=== PATIENT | female | born 1960 | race Caucasian/White ===

== ENCOUNTER 2017-12-01 14:01 | Emergency (ER) | payer BC ==
[~2017-12-01] VITALS: Ht 160 cm; Wt 61.2 kg
--- NOTE | ~2017-12-01 | EKG ---
[place] [address] [facility] [place] [address] ELECTROCARDIOGRAM REPORT Name: ALFREDO BOWEN Room #: [facility] Marcelo#: [id number] Admission: 12/01/17 Attend Phys: Discharge: 12/01/17 Date of : 60 Report #: [id number] THIS REPORT FOR: //name// [facility] ED Test Date: 2017-12-01 Test Time: 14:18:54 Pat Name: ALFREDO BOWEN Department: Room: Gender: F [employer] T[employer]: FROYLAN : 1960 Requested By: Rui Bustamante Order Number: [id number] MD: Gil Rooney Measurements Intervals [place] Rate: 103 P: 60 MS: 146 QRS: 57 QRSD: 90 T: 32 QT: 329 QTc: 431 Interpretive Statements Sinus tachycardia Multiform ventricular premature complexes Nonspecific repol abnormality, diffuse leads No previous ECG available for comparison Electronically Signed On 12-01-2017 23:04:41 [employer] SERVIC[employer] by Gil Rooney [email or web address] <ELECTRONICALLY SIGNED> By: Gil Rooney MD 12/01/17 [id number] 1418 MD CANDI Mccain
[2017-12-01 15:35] LABS: HEMATOCRIT 43.1 % (37.0-47.0); HEMOGLOBIN 14.7 gm/dL (12.0-15.0); MCH 30.9 pg (26.0-34.0); MCHC 34.2 g/dL (28.0-37.0); MCV 90.2 fL (80.0-100.0); RBC 4.78 mil/uL (4.20-5.00); RDW 14.4 % (10.5-14.5); WBC 5.6 thou/uL (4.0-11.0)
[2017-12-01 16:05] LABS: CALCIUM 8.7 mg/dL (8.5-10.1); CREATININE 0.7 mg/dL (0.6-1.0); MAGNESIUM 1.6 mg/dL (1.8-2.4); POTASSIUM 3.5 mmol/L (3.5-5.1)
== END 2017-12-01 17:54 | disposition home or self-care (01) ==
LOC: ER 14:01
PROVIDERS: Emergency Medicine
DX: J06.9 Acute upper respiratory infection, unspecified (principal); R00.2 Palpitations; I48.91 Unspecified atrial fibrillation